=== PATIENT | female | born 1965 ===

== ENCOUNTER → 2018-02-22 09:16 | Outpatient (CLI) | payer OTHER ==
[~2018-02-22 09:16] MED LIST: COZAAR50 MG; ORTHO TRI-7 DAYSX 3; SYNTHROID125 MCG
== END | disposition home or self-care (01) ==
LOC: LAB 09:16
DX: E55.9 Vitamin D deficiency, unspecified (principal); M85.9 Disorder of bone density and structure, unspecified; E21.3 Hyperparathyroidism, unspecified; M81.8 Other osteoporosis without current pathological fracture; E56.1 Deficiency of vitamin K; E03.8 Other specified hypothyroidism; E88.89 Other specified metabolic disorders; E83.42 Hypomagnesemia